=== PATIENT | female | born 1970 | race Caucasian/White ===

== ENCOUNTER 2017-01-21 15:42 | Emergency (ER) | payer SELFPAY ==
[~2017-01-21] VITALS: Ht 170.2 cm; Wt 68.0 kg
[~2017-01-21 15:42] MED LIST: B-COTAB41 PO; VITA100017 PO
--- NOTE | 2017-01-21 15:53 | PD ---
HPI . sore throat for 4 days Chief Complaint: ENT Complaint Time Seen by Provider: 15:53 Travel History International Travel<30 days: No Contact w/Intl Traveler<30days: No Traveled to known affect area: No History of Present Illness HPI 46-year-old female with no significant past medical history here with complaints of sore throat for 4 days. Patient tells me she has a history of strep throat. She is complaining of pain in her throat and it is not improving. She admits to some chills, but denies any fever. She denies any cold symptoms. She has no other complaints. She is eating and drinking well. PFSH Past Medical History Blood Disorders: No Cancer: No Cardiovascular Problems: No Diminished Hearing: No Endocrine: No Gastrointestinal Disorders: No Genitourinary: No Immune Disorder: No Implanted Vascular Access Dvce: No Musculoskeletal: No Neurologic: No Psychiatric: No Reproductive: No Respiratory: No Immunizations Current: Yes ?: Not LMP: 01/2017 Past Surgical History Appendectomy: Yes Social History Alcohol Use: Yes ("4 PACK EVERY OTHER DAY") Tobacco Use: Yes (ONE PPD) Substance Use: No Allergies-Medications (Allergen,Severity, Reaction): Coded Allergies: Codeine (Verified Allergy, Severe, ITCHING, 01/21/17) REACTION NOT GIVEN Reported Meds & Prescriptions Reported Meds & Active Scripts Active Prednisone 50 Mg Tab 50 Mg PO DAILY Penicillin V Potassium 500 Mg Tab 500 Mg PO TID Review of Systems General / Constitutional: No: Fever Eyes: No: Visual changes HENT: Positive: Sore Throat, No: Headaches Cardiovascular: No: Chest Pain or Discomfort Respiratory: No: Shortness of Breath Gastrointestinal: No: Abdominal Pain Genitourinary: No: Dysuria Musculoskeletal: No: Pain Skin: No Rash Neurologic: No: Weakness Psychiatric: No: Depression Endocrine: No: Polydipsia Hematologic/Lymphatic: No: Easy Bruising Physical Exam Narrative GENERAL: AAO x 3, no acute distress, Well-nourished, well-developed patient. SKIN: Warm and dry. No visible rashes or bruising. HEAD: Normocephalic and atraumatic. EYES: No scleral icterus. No injection or drainage. EOM intact, PERRLA ENT: No nasal drainage noted. Mucous membranes pink. Airway patent. Moderate posterior pharynx erythema and exudates bilaterally NECK: Supple, trachea midline. No JVD. Cervical chain lymphadenopathy present CARDIOVASCULAR: Regular rate and rhythm without murmurs, gallops, or rubs. RESPIRATORY: Breath sounds equal bilaterally. No accessory muscle use. No rhonchi or rales. GASTROINTESTINAL: Abdomen soft, non-tender, nondistended. EXTREMITIES: No cyanosis or edema. BACK: Nontender without obvious deformity. No CVA tenderness. PSYCH: AAO x 3, normal affect. Data Data Last Documented VS Vital Signs Date Time Temp Pulse Resp B/P Pulse Ox O2 Delivery O2 Flow Rate FiO2 01/21/17 16:10 98.2 89 17 140/74 97 Room Air Orders Throat Culture (01/21/17 15:53) MDM Medical Decision Making Medical Screen Exam Complete: Yes Emergency Medical Condition: Yes Medical Record Reviewed: Yes Differential Diagnosis Acute pharyngitis, less likely sinusitis, less likely pneumonia Narrative Course 46-year-old female with no significant past medical history here with complaints of sore throat for 4 days. Patient tells me she has a history of strep throat. She is complaining of pain in her throat and it is not improving. She admits to some chills, but denies any fever. She denies any cold symptoms. She has no other complaints. She is eating and drinking well. Patient seen and examined. She does have significant findings of posterior falx erythema and exudates. I will go ahead and treat her with penicillin. Throat culture was obtained. Advise follow-up with primary care provider if symptoms persist. Patient verbalized understanding of instructions, questions were answered, and thanked me for their care. I advised them if their condition worsens, please return to the nearest emergency room for further care. Diagnosis Primary Impression: Acute pharyngitis Qualified Code: J02.9 - Acute pharyngitis, unspecified etiology Patient Instructions: General Instructions, Pharyngitis (ED) Additional Instructions: Please return to emergency department if your symptoms return or worsen. Follow up with your primary care provider. Take medications as prescribed. Salt water gargles daily. Med/Other Pt SpecificInfo: Prescription(s) given Scripts Prednisone 50 Mg Tab50 Mg PO DAILY #5 TAB Ref 0 Prov:Natalio Santana MD 01/21/17 Penicillin V Potassium 500 Mg [id number] Mg PO TID #30 TAB Ref 0 Prov:Natalio Santana MD 01/21/17 Disposition: 01 DISCHARGE HOME Condition: Stable Laura Rajput Jan 21, 2017 15:53
[2017-01-21] MEDS ORDERED: PRED50 PO (15:58)
[2017-01-21] MEDS ORDERED: PENI500T PO (15:58)
[2017-01-21 16:10] VITALS: BP 140/74; PULSE 89; RESP 17; TEMP 98.2; O2SAT 97
== END 2017-01-21 16:15 | disposition home or self-care (01) ==
LOC: NEPB 15:42
DX: J02.0 Streptococcal pharyngitis (principal); B95.0 Streptococcus, group A, as the cause of diseases classified elsewhere
CPT/HCPCS: 87070; 99283